=== PATIENT | female | born 1975 | race Caucasian/White ===

== ENCOUNTER 2018-09-09 09:56 | Emergency (ER) | payer MEDICAID, OTHER ==
[~2018-09-09] VITALS: Ht 172.7 cm; Wt 63.5 kg
[2018-09-09] MEDS ORDERED: LACTATED RINGERS 1,000 ML IV ONE (10:26)
[2018-09-09] MEDS ORDERED: ONDANSETRON 4 MG/2 ML (SDV) Z0FRAN IVP ONE (10:30)
[2018-09-09] MEDS ORDERED: HYOSCYAMINE 0.125 MG (LEVSIN) TAB SL ONE (10:30)
[2018-09-09 10:43] LABS: BASOPHILS % (AUTO) 0 % (0-10); EOSINOPHILS # (AUTO) 0.2 10^3/uL (0.0-0.3); EOSINOPHILS % (AUTO) 2 % (0-10); HEMATOCRIT 37 % (35-52); HEMOGLOBIN 12.2 G/DL (11.5-16.0); LYMPHOCYTES # (AUTO) 1.2 X 10^3 (1.0-4.0); LYMPHOCYTES % (AUTO) 14 % (12-44); MEAN CORPUSCULAR HEMOGLOBIN 29 PG (25-34); MEAN CORPUSCULAR HGB CONC 33 G/DL (32-36); MEAN CORPUSCULAR VOLUME 89 FL (80-99); MEAN PLATELET VOLUME 9.3 FL (7.4-10.4); MONOCYTES % (AUTO) 11 % (0-12); NEUTROPHILS # (AUTO) 6.4 X 10^3 (1.8-7.8); NEUTROPHILS % (AUTO) 73 % (42-75); PLATELET COUNT 277 10^3/uL (130-400); RED BLOOD COUNT 4.19 10^6/uL (4.35-5.85); RED CELL DISTRIBUTION WIDTH 15.6 % (10.0-14.5); WHITE BLOOD COUNT 8.8 10^3/uL (4.3-11.0)
[2018-09-09] MEDS ORDERED: KETOROLAC 30 MG/ML VIAL IVP ONE (11:00)
[2018-09-09 11:01] LABS: ALBUMIN 3.1 GM/DL (3.2-4.5); BILIRUBIN,TOTAL 0.3 MG/DL (0.1-1.0); CALCIUM 8.9 MG/DL (8.5-10.1); CREATININE SERUM 1.93 MG/DL (0.60-1.30); MAGNESIUM 1.9 MG/DL (1.8-2.4); TOTAL PROTEIN 6.3 GM/DL (6.4-8.2)
[2018-09-09 11:05] LABS: BAND NEUTROPHILS 13 %; BASOPHILS % (MANUAL) 0 %; EOSINOPHILS % (MANUAL) 3 %; LYMPHOCYTES % (MANUAL) 24 %; MONOCYTES % (MANUAL) 9 %; NEUTROPHILS % (MANUAL) 51 %; RBC MORPH NORMAL
[2018-09-09] MEDS ORDERED: NS IV 1000 ML 1,000 ML IV ONE (11:36)
[2018-09-09] MEDS ORDERED: fentaNYL INJECTION 100 MCG/2 ML AMP IVP ONE (12:00)
[2018-09-09] MEDS ORDERED: DIPHENOXYLATE/ATROPINE 2.5MG/0.025MG (LOMOTIL) TAB PO ONE (12:00)
--- NOTE | 2018-09-09 12:10 | ED Abdominal Pain ---
General Chief Complaint: Abdominal/GI Problems Stated Complaint: DIARRHEA;NAUSEA;ABD PAIN Nursing Triage Note: PATIENT HERE FOR COMPLAINTS OF ABDOMINAL PAIN, DIARRHEA AND FOUL BURPS SINCE WEDNESDAY. SHE ALSO COMPLAINS OF "LITTLE TWITCHES." Sepsis Screen: No Definite Risk Source of Information: Patient Exam Limitations: No Limitations Allergies and Home Medications Allergies Coded Allergies: lamotrigine (Verified Allergy, Unknown, 09/09/18) Home Medications Diphenoxylate HCl/Atropine 1 Each Tablet, 1 EACH PO Q6H PRN for DIARRHEA Prescribed by: TRESA BECKER on 09/09/18 1216 Ondansetron 4 Mg Tab.rapdis, 4 MG SL Q4H PRN for NAUSEA/VOMITING Prescribed by: TRESA BECKER on 09/09/18 1216 Past [id number]-[id number] Hx Patient Social History Alcohol Use: Occasionally Uses Recreational Drug Use: No (PAST IV DRUG USE) Smoking Status: Current Everyday Smoker Type Used: Cigarettes 2nd Hand Smoke Exposure: Yes Recent Foreign Travel: No Contact w/Someone Who Travel: No Recent Infectious Disease Expo: No Recent Hopitalizations: No Physical Abuse: No Sexual Abuse: No Seasonal Allergies Seasonal Allergies: No Past Medical History Surgeries: Yes Orthopedic Respiratory: No Cardiac: No Neurological: No Genitourinary: No Gastrointestinal: No Musculoskeletal: Yes Chronic Back Pain Endocrine: No HEENT: No Cancer: No Psychosocial: No Integumentary: No Blood Disorders: No Physical Exam Vital Signs Vital Signs - First Documented 09/09/18 10:53 Temp 98.2 Pulse 110 Resp 20 B/P (MAP) 119/65 (83) Pulse Ox 97 Capillary Refill : Less Than 3 Seconds Height/Weight/BMI Height: 5'8.00" Weight: 140lbs. 0oz. 63.892011uc; BMI Method:Stated Progress/Results/Core Measures Results/Orders Lab Results Laboratory Tests Test 09/09/18 10:30 Range/Units White Blood Count 8.8 4.3-11.0 10^3/uL Red Blood Count 4.19 L 4.35-5.85 10^6/uL Hemoglobin 12.2 11.5-16.0 G/DL Hematocrit 37 35-52 % Mean Corpuscular Volume 89 80-99 FL Mean Corpuscular Hemoglobin 29 25-34 PG Mean Corpuscular Hemoglobin Concent 33 32-36 G/DL Red Cell Distribution Width 15.6 H 10.0-14.5 % Platelet Count 277 130-400 10^3/uL Mean Platelet Volume 9.3 7.4-10.4 FL Neutrophils (%) (Auto) 73 42-75 % Lymphocytes (%) (Auto) 14 12-44 % Monocytes (%) (Auto) 11 0-12 % Eosinophils (%) (Auto) 2 0-10 % Basophils (%) (Auto) 0 0-10 % Neutrophils # (Auto) 6.4 1.8-7.8 X 10^3 Lymphocytes # (Auto) 1.2 1.0-4.0 X 10^3 Monocytes # (Auto) 1.0 0.0-1.0 X 10^3 Eosinophils # (Auto) 0.2 0.0-0.3 10^3/uL Basophils # (Auto) 0.0 0.0-0.1 10^3/uL Neutrophils % (Manual) 51 % Lymphocytes % (Manual) 24 % Monocytes % (Manual) 9 % Eosinophils % (Manual) 3 % Basophils % (Manual) 0 % Band Neutrophils 13 % Blood Morphology Comment NORMAL Sodium Level 134 L 135-145 MMOL/L Potassium Level 4.0 3.6-5.0 MMOL/L Chloride Level 105 98-107 MMOL/L Carbon Dioxide Level 19 L 21-32 MMOL/L Anion Gap 10 5-14 MMOL/L Blood Urea Nitrogen 29 H 7-18 MG/DL Creatinine 1.93 H 0.60-1.30 MG/DL Estimat Glomerular Filtration Rate 28 BUN/Creatinine Ratio 15 Glucose Level 130 H 70-105 MG/DL Calcium Level 8.9 8.5-10.1 MG/DL Corrected Calcium 9.6 8.5-10.1 MG/DL Magnesium Level 1.9 1.8-2.4 MG/DL Total Bilirubin 0.3 0.1-1.0 MG/DL Aspartate Amino Transf (AST/SGOT) 6 5-34 U/L Alanine Aminotransferase (ALT/SGPT) 9 0-55 U/L Alkaline Phosphatase 106 40-136 U/L Total Protein 6.3 L 6.4-8.2 GM/DL Albumin 3.1 L 3.2-4.5 GM/DL My Orders Orders - TRESA BANKS MD Cbc With Automated Diff (09/09/18 10:26) Comprehensive Metabolic Panel (09/09/18 10:26) Magnesium (09/09/18 10:26) Saline Lock/Iv-Start (09/09/18 10:26) Lactated Ringers (Lr 1000 Ml Iv Solution (09/09/18 10:26) Ondansetron Injection (Zofran Injectio (09/09/18 10:30) Hyoscyamine Sl Tablet (Levsin Sl Tablet) (09/09/18 10:30) Manual Differential (09/09/18 10:30) Ketorolac Injection (Toradol Injection) (09/09/18 11:00) Ns Iv 1000 Ml (Sodium Chloride 0.9%) (09/09/18 11:36) Fentanyl Injection (Sublimaze Injection (09/09/18 12:00) Diphenoxylate/Atropine Tablet (Lomotil T (09/09/18 12:00) Lipase (09/09/18 12:06) Medications Given in ED Current Medications Medications Dose Ordered Sig/Marguerite Route Start Time Stop Time Status Last Admin Dose Admin Diphenoxylate HCl/ Atropine 2 ea ONCE ONCE PO 09/09/18 12:00 09/09/18 12:03 DC 09/09/18 12:14 2 EA Fentanyl Citrate 50 mcg ONCE ONCE IVP 09/09/18 12:00 09/09/18 12:03 DC 09/09/18 12:14 50 MCG Hyoscyamine Sulfate 0.25 mg ONCE ONCE SL 09/09/18 10:30 09/09/18 10:31 DC 09/09/18 10:45 0.25 MG Ketorolac Tromethamine 15 mg ONCE ONCE IVP 09/09/18 11:00 09/09/18 11:03 DC 09/09/18 11:30 15 MG Lactated Ringer's 1,000 ml @ 0 mls/hr Q0M ONCE IV 09/09/18 10:26 09/09/18 10:30 DC 09/09/18 10:45 0 MLS/HR Ondansetron HCl 8 mg ONCE ONCE IVP 09/09/18 10:30 09/09/18 10:31 DC 09/09/18 10:45 8 MG Sodium Chloride 1,000 ml @ 0 mls/hr Q0M ONCE IV 09/09/18 11:36 09/09/18 11:37 DC 09/09/18 11:53 0 MLS/HR Vital Signs/I&O 09/09/18 10:53 Temp 98.2 Pulse 110 Resp 20 B/P (MAP) 119/65 (83) Pulse Ox 97 Blood Pressure Mean: 83 Departure Impression Primary Impression: Acute kidney injury Additional Impressions: Diarrhea Qualified Codes: R19.7 - Diarrhea, unspecified Nausea & vomiting Qualified Codes: R11.2 - Nausea with vomiting, unspecified Upper abdominal pain Disposition: 01 HOME, SELF-CARE Condition: Improved Departure-Patient Inst. Decision time for Depature: 12:08 Referrals: NO,LOCAL PHYSICIAN (PCP) Primary Care Physician Patient Instructions: Acute Abdomen (Belly Pain), Adult (DC), Clear Liquid Diet , Diarrhea in Adolescents and Adults Add. Discharge Instructions: Restrict your diet to clear liquids only for the next 24 hours. For nausea and vomiting take Zofran (ondansetron) as prescribed. For diarrhea, you may take Lomotil as prescribed. For pain he may take ibuprofen up to 600 mg every 6 hours and/or Tylenol ( acetaminophen) up to 1000 mg every 6 hours as needed. Drink plenty of Clear liquids. Pedialyte or the generic equivalent would be the ideal fluid for staying hydrated. Return to care if symptoms are worsening. Follow-up with your primary care provider soon as possible to have your kidney function and electrolytes checked again. You may take Tums or other antacid medication such as famotidine (Pepcid) to help with stomach upset as well. All discharge instructions reviewed with patient and/or family. Voiced understanding. Scripts Diphenoxylate HCl/Atropine (Lomotil 2.5-0.025 mg Tablet) 1 Each Tablet 1 EACH PO Q6H PRN for DIARRHEA, #10 TAB Prov: TRESA BANKS MD 09/09/18 Ondansetron (Ondansetron Odt) 4 Mg Tab.rapdis 4 MG SL Q4H PRN for NAUSEA/VOMITING, #10 TAB Prov: TRESA BANKS MD 09/09/18 Work/School Note: Work Release Form Date Seen in the Emergency Department: Sep 09, 2018 Return to Work: Sep 11, 2018 Restrictions: No Restrictions TRESA BANKS MD Sep 09, 2018 12:10
[2018-09-09] MEDS ORDERED: DIPH1TAB PO (12:16)
[2018-09-09] MEDS ORDERED: ONDA4TAB11 SL (12:16)
[2018-09-09 12:35] VITALS: BP 119/65
== END 2018-09-09 13:50 | disposition home or self-care (01) ==
LOC: ER 09:57
DX: N17.9 Acute kidney failure, unspecified (principal); R19.7 Diarrhea, unspecified; R11.2 Nausea with vomiting, unspecified; F17.210 Nicotine dependence, cigarettes, uncomplicated; Z88.8 Allergy status to other drugs, medicaments and biological substances
CPT/HCPCS: 36415; 80053; 83690; 83735; 85007; 85027